=== PATIENT | female | born 1995 | race American Indian/Alaskan Native ===

== ENCOUNTER 2016-10-21 02:07 | Emergency (ER) | payer MEDICAID ==
[2016-10-21 03:43] LABS: Bacteria,Urine 1+ /HPF (Negative); Bilirubin,Urine NEG (Negative); Blood,Urine NEG (Negative); Ketones,Urine NEG (Negative); Leukocyte Esterase,Urine SM (Negative); Mucus,Urine FEW /HPF; Nitrite,Urine POS (Negative); Protein,Urine <15 mg/dL mg/dL (Negative)
--- NOTE | 2016-10-21 03:49 | Emergency Department Report ---
ED General Adult HPI - General Chief complaint: Extremity Injury, Upper Stated complaint: RT HAND INJURY/URINE ODOR Time Seen by Provider: 10/21/16 03:48 Source: patient, RN notes reviewed Mode of arrival: Ambulatory Limitations: No Limitations - History of Present Illness Initial comments: This is a 21-year-old female. She is previously unknown to me. She is right- hand dominant. She presents to the ER with right dorsal hand pain after accidentally hitting her hand into a door. There is no crush injury. There are no other injuries. The pain is achy, increases with palpation, range of motion, decreases with rest. No other injuries. Patient also complains of vaginal discharge for 1 month. She denies irritative and obstructive urinary symptoms. She denies pelvic pain. The patient denies fevers and chills. Patient reports multiple sexual partners, does not use condoms. Location: right (hand) Radiation: non-radiation Quality: aching Consistency: intermittent Improves with: rest Worsens with: movement Associated Symptoms: denies: confusion, chest pain, cough, diaphoresis, fever/ chills, headaches, loss of appetite, malaise, nausea/vomiting, shortness of breath, syncope, weakness - Related Data Home Medications Medication Instructions Recorded Confirmed Last Taken No Known Home Medications [No 07/06/15 07/06/15 Unknown Reported Home Medications] Allergies Allergy/AdvReac Type Severity Reaction Status Date / Time No Known Allergies Allergy Unverified 07/06/15 20:10 ED Review of Systems ROS: Stated complaint: RT HAND INJURY/URINE ODOR Other details as noted in HPI Constitutional: denies: fever, malaise Eyes: denies: vision change ENT: denies: epistaxis Respiratory: denies: cough Cardiovascular: denies: chest pain Genitourinary: discharge Musculoskeletal: arthralgia, myalgia. denies: back pain Skin: denies: lesions Neurological: denies: weakness ED Past Medical Hx - Past Medical History Previous Medical History?: No - Social History Smoking Status: Current Every Day Smoker Substance Use Type: Alcohol - Medications Home Medications: Home Medications Medication Instructions Recorded Confirmed Last Taken Type No Known Home Medications [No 07/06/15 07/06/15 Unknown History Reported Home Medications] ED Physical Exam - General Limitations: No Limitations General appearance: alert, in no apparent distress - Head Head exam: Present: atraumatic, normocephalic - Eye Eye exam: Present: normal appearance, EOMI. Absent: nystagmus - ENT ENT exam: Present: normal exam, normal orophraynx, mucous membranes moist, normal external ear exam - Neck Neck exam: Present: normal inspection, full ROM. Absent: tenderness, meningismus - Respiratory Respiratory exam: Present: normal lung sounds bilaterally. Absent: respiratory distress, wheezes, rales, rhonchi, stridor, chest wall tenderness - Cardiovascular Cardiovascular Exam: Present: regular rate, normal rhythm, normal heart sounds. Absent: systolic murmur, diastolic murmur, rubs, gallop - GI/Abdominal GI/Abdominal exam: Present: soft, normal bowel sounds. Absent: distended, tenderness, guarding, rebound, rigid, pulsatile mass - External exam: Present: normal external exam Speculum exam: Present: normal speculum exam. Absent: vaginal bleeding, foreign body Bi-manual exam: Present: normal bi-manual exam, other (escorted by ED photographs curator Gaetano Fischer). Absent: cervical motion tendernes, adnexal tenderness, adnexal mass - Extremities Exam Extremities exam: Present: normal inspection, full ROM, tenderness, normal capillary refill, other (there is tenderness to the dorsal aspect of the right hand. There is no snuffbox tenderness. Thumb opposition lumbricals intact. Sensation intact to light touch in the deltoid, median, radial, ulnar distribution. Compartments are soft. 2+ pulses in b/l upper extremities.). Absent: calf tenderness - Back Exam Back exam: Present: normal inspection, full ROM. Absent: tenderness, CVA tenderness (R), CVA tenderness (L), muscle spasm, paraspinal tenderness, vertebral tenderness - Neurological Exam Neurological exam: Present: alert, oriented X3, normal gait, other (Extraocular movements intact. Tongue midline. No facial droop. Facial sensation intact to light touch in the V1, V2, V3 distribution bilaterally. 5 and 5 strength in 4 extremities.. Sensation is intact to light touch in 4 extremities.). Absent : motor sensory deficit - Psychiatric Psychiatric exam: Present: normal affect, normal mood - Skin Skin exam: Present: warm, dry, intact, normal color. Absent: rash ED Course Vital Signs 10/21/16 02:25 Temperature 98.0 F Pulse Rate 81 Respiratory 16 Rate Blood Pressure 137/93 O2 Sat by Pulse 100 Oximetry ED Medical Decision Making - Lab Data Vital Signs 10/21/16 02:25 Temperature 98.0 F Pulse Rate 81 Respiratory 16 Rate Blood Pressure 137/93 O2 Sat by Pulse 100 Oximetry Vital Signs 10/21/16 02:25 Temperature 98.0 F Pulse Rate 81 Respiratory 16 Rate Blood Pressure 137/93 O2 Sat by Pulse 100 Oximetry Laboratory Last Values Urine Color Yellow (Yellow) 10/21/16 02:41 Urine Turbidity Clear (Clear) 10/21/16 02:41 Urine pH 6.0 (5.0-7.0) 10/21/16 02:41 Ur Specific Thomson 1.015 (1.003-1.030) 10/21/16 02:41 Urine Protein <15 mg/dl mg/dL (Negative) 10/21/16 02:41 Urine Glucose (UA) Neg mg/dL (Negative) 10/21/16 02:41 Urine Ketones Neg mg/dL (Negative) 10/21/16 02:41 Urine Blood Neg (Negative) 10/21/16 02:41 Urine Nitrite Pos (Negative) 10/21/16 02:41 Ur Reducing Substances Not Reportable 10/21/16 02:41 Urine Bilirubin Neg (Negative) 10/21/16 02:41 Urine Ictotest Not Reportable 10/21/16 02:41 Urine Urobilinogen 2.0 mg/dL (<2.0) 10/21/16 02:41 Ur Leukocyte Esterase Sm (Negative) 10/21/16 02:41 Urine WBC (Auto) 7.0 /HPF (0.0-6.0) H 10/21/16 02:41 Urine RBC (Auto) 3.0 /HPF (0.0-6.0) 10/21/16 02:41 U Epithel Cells (Auto) 1.0 /HPF (0-13.0) 10/21/16 02:41 Urine Bacteria (Auto) 1+ /HPF (Negative) 10/21/16 02:41 Urine Mucus Few /HPF 10/21/16 02:41 Urine HCG, Qual Negative (Negative) 10/21/16 02:41 - Radiology Data Radiology results: report reviewed, image reviewed X-ray of the hand demonstrates no fracture or dislocation. - Medical Decision Making Differential diagnosis: Hand contusion, hand fracture, hand dislocation, nonspecific vaginitis Assessment and plan: 21-year-old female with right-sided hand injury without fracture or dislocation. Medical history, this injury pattern would be very unlikely to cause a snuffbox or scaphoid injury. There is no fall on outstretched hand. There is no cervical motion tenderness or adnexal tenderness. The patient denies irritative or obstructive urinary symptoms. Therefore pelvic inflammatory disease and UTI very unlikely. She is given pain medication, placed in a right wrist splint. She is instructed to follow up with outpatient primary care or orthopedics. Return precautions are reviewed. Critical care attestation.: If time is entered above; I have spent that time in minutes in the direct care of this critically ill patient, excluding procedure time. ED Disposition Clinical Impression: Right hand pain, Vaginal discharge Disposition: TO HOME OR SELFCARE Is pt being admited?: No Does the pt Need Aspirin: No Condition: Stable Instructions: Contusion in Adults (ED), Vaginitis (ED) Additional Instructions: Rest and avoid heavy lifting. Avoid strenuous physical activity. Cultures was sent today, results be available in the next 3-5 days. Have a primary care doctor contact medical records department to obtain culture results. Keep the splint in place on the right upper extremity. Follow up with either primary care or orthopedics for reevaluation to have the splint taken off. Make certain to practice safe sex. Make certain that any partner that you are intimate with wears a condom. Not practicing safe sex puts the patient at risk for STDs, such as syphilis, hepatitis, HIV. Return to the ER right away with new pain, worsened pain, migration of pain, fevers, chills, confusion, weakness, numbness, intractable nausea or vomiting, inability to tolerate liquid feeds. Referrals: PRIMARY MD NORA [Primary Care Provider] - 3-5 Days MORENITA AVENDAÑO MD [Staff Physician] - 3-5 Days MITCHELL LANDIS MD [Staff Physician] - 3-5 Days [facility] [Provider Group] - 3-5 Days
--- NOTE | 2016-10-21 04:08 | XRay Report ---
FINAL REPORT EXAM: XR HAND 2V RT HISTORY: RIGHT HAND PAIN AND LIMITED MOBILITY/EXTENSION. STATUS POST INJURY. TECHNIQUE: Three radiographs of the right hand were obtained. No prior studies are available for comparison. FINDINGS: There is no fracture or dislocation. There is mild flexion of the 2nd through 5th digits. No other discrete osseous abnormality is seen. No significant soft tissue abnormality is identified. IMPRESSION: Nonspecific mild flexion of the 2nd through 5th digits. No fracture, dislocation, or other osseous abnormality.
[2016-10-21] MEDS ORDERED: MOTRIN PO ONE (04:32)
[2016-10-21 05:15] VITALS: BP 122/74
== END 2016-10-21 05:14 | disposition home or self-care (01) ==
LOC: ED 02:07
DX: M79.641 Pain in right hand (principal); N89.8 Other specified noninflammatory disorders of vagina; F17.200 Nicotine dependence, unspecified, uncomplicated; W22.03XA Walked into furniture, initial encounter; Y93.89 Activity, other specified; Y99.8 Other external cause status; Y92.89 Other specified places as the place of occurrence of the external cause
CPT/HCPCS: 81001; 81025; 87210; 87591

== ENCOUNTER 2017-06-06 03:03 | Emergency (ER) | payer MEDICAID ==
[2017-06-06 04:28] LABS: Bilirubin,Urine NEG (Negative); Blood,Urine NEG (Negative); Color,Urine Yellow (Yellow); Protein,Urine <15 mg/dL mg/dL (Negative); Urobilinogen,Urine < 2.0 mg/dL (<2.0)
[2017-06-06 04:35] LABS: Basophils % (Auto) 0.4 % (0.0-1.8); Eosinophils # (Auto) 0.1 K/mm3 (0.0-0.4); Eosinophils % (Auto) 1.1 % (0.0-4.3); Hemoglobin 11.2 gm/dl (10.1-14.3); Lymphocytes # (Auto) 1.7 K/mm3 (1.2-5.4); Lymphocytes % (Auto) 26.3 % (13.4-35.0); Mean Corpuscular HGB Conc 33 % (30-34); Mean Corpuscular Hemoglobin 26 pg (28-32); Mean Corpuscular Volume 79 fl (79-97); Monocytes # (Auto) 0.6 K/mm3 (0.0-0.8); Monocytes % (Auto) 9.8 % (0.0-7.3); Platelet Count 264 K/mm3 (140-440); Red Blood Count 4.29 M/mm3 (3.65-5.03); Red Cell Distribution Width 17.2 % (13.2-15.2)
[2017-06-06 04:41] LABS: Alanine Aminotransferase 11 units/L (7-56); Albumin 4.1 g/dL (3.9-5); BUN/Creatinine Ratio 9; Blood Urea Nitrogen 6 mg/dL (7-17); Calcium 9.1 mg/dL (8.4-10.2); Hemolysis Index 1; Lipase 17 units/L (13-60)
--- NOTE | 2017-06-06 09:24 | Emergency Department Report ---
ED Abdominal Pain HPI - General Chief Complaint: Abdominal Pain Stated Complaint: ABD PAIN; Time Seen by Provider: 06/06/17 08:49 Source: patient Mode of arrival: Ambulatory Limitations: No Limitations - History of Present Illness Initial Comments: Patient is 22 years old female With lower abdominal pain mellitus suprapubic for the last few days. Patient stated that her last menstrual period was in the beginning of April. She denied any nausea or vomiting. No urinary symptoms. No vaginal bleeding or vaginal discharge. No fever. MD Complaint: abdominal pain Location: suprapubic Radiation: none Migration to: no migration Severity scale (0 -10): 3 Consistency: intermittent Associated Symptoms: denies other symptoms - Related Data Previous Rx's Medication Instructions Recorded Last Taken Type Ibuprofen [Motrin] 600 mg PO Q8H PRN #30 tablet 10/21/16 Unknown Rx metroNIDAZOLE [Metronidazole] 70 gm VG QHS #5 gel.w.appl 10/21/16 Unknown Rx Allergies Allergy/AdvReac Type Severity Reaction Status Date / Time No Known Allergies Allergy Unverified 07/06/15 20:10 ED Review of Systems ROS: Stated complaint: ABD PAIN; Other details as noted in HPI Comment: All other systems reviewed and negative Constitutional: denies: chills, fever Respiratory: denies: cough, orthopnea, shortness of breath, SOB with exertion Gastrointestinal: abdominal pain. denies: nausea, vomiting, diarrhea, constipation, hematemesis Genitourinary: denies: urgency, frequency Neurological: denies: headache, weakness ED Past Medical Hx - Past Medical History Previous Medical History?: No - Surgical History Additional Surgical History: Abortions - Social History Smoking Status: Never Smoker Substance Use Type: Marijuana - Medications Home Medications: Home Medications Medication Instructions Recorded Confirmed Last Taken Type Ibuprofen [Motrin] 600 mg PO Q8H PRN #30 tablet 10/21/16 Unknown Rx metroNIDAZOLE [Metronidazole] 70 gm VG QHS #5 gel.w.appl 10/21/16 Unknown Rx ED Physical Exam - General Limitations: No Limitations General appearance: alert, in no apparent distress - Head Head exam: Present: atraumatic, normocephalic - Eye Eye exam: Present: normal appearance, PERRL - ENT ENT exam: Present: normal exam, normal orophraynx, mucous membranes moist - Neck Neck exam: Present: normal inspection. Absent: tenderness, meningismus - Respiratory Respiratory exam: Present: normal lung sounds bilaterally - Cardiovascular Cardiovascular Exam: Present: regular rate, normal rhythm, normal heart sounds - GI/Abdominal GI/Abdominal exam: Present: soft, normal bowel sounds. Absent: distended, tenderness, guarding, rebound, rigid, organomegaly, mass, bruit, pulsatile mass - Extremities Exam Extremities exam: Present: normal inspection, full ROM, normal capillary refill - Back Exam Back exam: Present: normal inspection, full ROM. Absent: CVA tenderness (R), CVA tenderness (L) - Neurological Exam Neurological exam: Present: alert, oriented X3, CN II-XII intact, normal gait - Skin Skin exam: Present: warm, intact, normal color ED Course Vital Signs 06/06/17 06/06/17 03:44 08:19 Temperature 98 F Pulse Rate 75 Respiratory 18 16 Rate Blood Pressure 132/90 O2 Sat by Pulse 100 Oximetry - Reevaluation(s) Reevaluation #1: 06/06/17 13:14 Patient stated that she is feeling better, she stated that she made an appointment with her OB for June 15. ED Medical Decision Making - Lab Data Result diagrams: 06/06/17 03:52 06/06/17 03:52 - Radiology Data Radiology results: report reviewed Referring Physician: DANYA HUTCHISON Patient Name: LUCINDA BRUNO Date of : 1995 Sex: Female Report Date: 2017-06-06 Report Status: Finalized Findings [facility] [address] [place] [address] Ultrasound Report Signed Patient: LUCINDA BRUNO MR#: [id number] : 1995 Acct:[id number] Age/Sex: 22 / F ADM Date: 06/06/17 Loc: ED Attending Dr: Ordering Physician: DANYA HUTCHISON Date of Service: 06/06/17 Procedure(s): US OB transvaginal Accession Number(s): [id number] cc: DANYA HUTCHISON ULTRASOUND OB LESS THAN 14 WEEKS FETUS ULTRASOUND OB TRANSVAGINAL HISTORY: Abdominal pain during , beta-hCG level of 2777. COMPARISON: None. TECHNIQUE: Transabdominal and transvaginal ultrasound with color doppler interrogation. FINDINGS: Uterus: 10 x 6 x 6 cm. No uterine mass. The cervix is unremarkable. Endometrium: The endometrium measures 18 mm in thickness on transvaginal imaging. There appears to be a tiny cyst or gestational sac within the endometrium with average diameter measuring 7.1 mm which correlates with a 5 week, 3 day . There may be a tiny yolk sac. No convincing pole with cardiac activity. Right ovary: 1.8 x 2.7 x 2.8 cm. No focal abnormality. Left ovary: 2.4 x 3.6 x 3.5 cm. A 2.1 cm corpus luteum cyst is suspected in the left ovary. No pelvic fluid or mass is identified. Normal color doppler interrogation. IMPRESSION: There appears to be a tiny cyst or gestational sac within the endometrial canal as described. No convincing pole or cardiac activity is identified at this time. This may represent a normal very early . Close interval followup is recommended. Transcribed By: TTR Dictated By: ALISTAIR PALOMINO JR, MD Electronically Authenticated By: ALISTAIR PALOMINO JR, MD Signed Date/Time: 06/06/171224 DD/ 21 TD/TT: 06/06/17 1225 Critical care attestation.: If time is entered above; I have spent that time in minutes in the direct care of this critically ill patient, excluding procedure time. ED Disposition Clinical Impression: Abdominal pain affecting Disposition: DC-01 TO HOME OR SELFCARE Is pt being admited?: No Condition: Stable Instructions: Abdominal Pain in (ED) Referrals: PRIMARY CAREMD [Primary Care Provider] - 3-5 Days
--- NOTE | 2017-06-06 12:33 | Ultrasound Report ---
ULTRASOUND OB LESS THAN 14 WEEKS FETUS ULTRASOUND OB TRANSVAGINAL HISTORY: Abdominal pain during , beta-hCG level of 2777. COMPARISON: None. TECHNIQUE: Transabdominal and transvaginal ultrasound with color doppler interrogation. FINDINGS: Uterus: 10 x 6 x 6 cm. No uterine mass. The cervix is unremarkable. Endometrium: The endometrium measures 18 mm in thickness on transvaginal imaging. There appears to be a tiny cyst or gestational sac within the endometrium with average diameter measuring 7.1 mm which correlates with a 5 week, 3 day . There may be a tiny yolk sac. No convincing pole with cardiac activity. Right ovary: 1.8 x 2.7 x 2.8 cm. No focal abnormality. Left ovary: 2.4 x 3.6 x 3.5 cm. A 2.1 cm corpus luteum cyst is suspected in the left ovary. No pelvic fluid or mass is identified. Normal color doppler interrogation. IMPRESSION: There appears to be a tiny cyst or gestational sac within the endometrial canal as described. No convincing pole or cardiac activity is identified at this time. This may represent a normal very early . Close interval followup is recommended.
[2017-06-06 13:29] VITALS: BP 126/75
== END 2017-06-06 13:29 | disposition home or self-care (01) ==
LOC: ED 03:03
DX: O26.891 Other specified pregnancy related conditions, first trimester (principal); R10.30 Lower abdominal pain, unspecified; Z3A.01 Less than 8 weeks gestation of pregnancy
CPT/HCPCS: 36415; 76801; 76817; 80053; 81001; 83690; 84702; 84703; 85025; 99284

== ENCOUNTER 2017-06-25 06:14 | Emergency (ER) | payer MEDICAID ==
[2017-06-25] MEDS ORDERED: TYLENOL ONE (06:19)
[2017-06-25 06:26] VITALS: BP 117/68
[2017-06-25] MEDS ORDERED: TYLENOL PO ONE (06:29)
[2017-06-25 07:04] LABS: Basophils % (Auto) 0.4 % (0.0-1.8); Eosinophils # (Auto) 0.1 K/mm3 (0.0-0.4); Eosinophils % (Auto) 0.8 % (0.0-4.3); Hematocrit 33.4 % (30.3-42.9); Hemoglobin 11.1 gm/dl (10.1-14.3); Lymphocytes # (Auto) 1.4 K/mm3 (1.2-5.4); Lymphocytes % (Auto) 19.4 % (13.4-35.0); Mean Corpuscular HGB Conc 33 % (30-34); Mean Corpuscular Hemoglobin 27 pg (28-32); Mean Corpuscular Volume 80 fl (79-97); Monocytes # (Auto) 0.7 K/mm3 (0.0-0.8); Monocytes % (Auto) 9.9 % (0.0-7.3); Platelet Count 235 K/mm3 (140-440); Red Blood Count 4.15 M/mm3 (3.65-5.03); Red Cell Distribution Width 16.9 % (13.2-15.2)
[2017-06-25 07:17] LABS: BUN/Creatinine Ratio 7; Blood Urea Nitrogen 4 mg/dL (7-17); Calcium 8.7 mg/dL (8.4-10.2); Hemolysis Index 3
[2017-06-25 07:49] LABS: Bacteria,Urine 1+ /HPF (Negative); Bilirubin,Urine NEG (Negative); Blood,Urine NEG (Negative); Color,Urine Yellow (Yellow); Mucus,Urine FEW /HPF; Protein,Urine <15 mg/dL mg/dL (Negative); Urobilinogen,Urine < 2.0 mg/dL (<2.0)
--- NOTE | 2017-06-25 07:55 | Ultrasound Report ---
FINAL REPORT EXAM: US OB < = 14 WEEKS FETUS HISTORY: abdominal pain COMPARISONS: None. FINDINGS: Transabdominal grayscale, color Doppler and M-mode first-trimester ultrasound There is a single living intrauterine with recorded cardiac activity of 155 beats per minute and crown-rump length of 15 millimeters corresponding to estimated gestational age of 7 weeks 6 days and delivery date of 02/05/2018. A normal appearing yolk sac measures approximately 3 millimeters in caliber. Perigestational hemorrhage involves less than 25 percent of the gestational sac surface area and measures 2.5 x 0.7 x 0.5 cm. No significant free fluid in the pelvis. The right ovary measures 3.5 x 1.3 x 2.9 cm and the left ovary measures 4.1 x 2.1 x 2.6 cm. Ovaries demonstrate normal echotexture and color Doppler evaluation. Left ovarian 2.3 centimeter corpus luteal cyst is noted. IMPRESSION: Single living intrauterine with estimated gestational age of 7 weeks 6 days corresponding to delivery date of 02/05/2018.
[2017-06-25] MEDS ORDERED: NACL 0.9% 1000 ML 1,000 ML ONE (08:00)
[2017-06-25] MEDS ORDERED: NACL 0.9% 1000 ML 1,000 ML IV ONE (08:09)
--- NOTE | 2017-06-25 08:26 | Emergency Department Report ---
ED HPI - General Chief complaint: Abdominal Pain Stated complaint: STOMACH PAIN Time Seen by Provider: 06/25/17 08:07 Source: patient Mode of arrival: Ambulatory Limitations: No Limitations - History of Present Illness Initial comments: This is a 22-year-old female A4 nontoxic, well nourished in appearance, no acute signs of distress presents to the ED with c/o of abdominal cramping 1 day. Patient stated she woke up this morning with these symptoms. Patient states she is currently 8 weeks with no [facility] follow-up. Patient describes abdominal cramping mostly in the pelvic region. Patient denies any vaginal bleeding, vaginal discharge, fever, chills, nausea, vomiting, headache, stiff neck, back pain. Patient denies any urinary symptoms. Patient denies any allergies or significant past medical history. Patient denies any calf pain or calf tenderness. Denies any recent travels, long car rides, or recent hospital stays. The patient states that symptoms has currently resolved after receiving Tylenol in the ED. MD Complaint: abdominal pain -: Last night Location: pelvis Radiation: none Severity: mild Severity scale (0 -10): 3 Quality: cramping Consistency: intermittent, now resolved Improves with: none Worsens with: none Associated symptoms: denies other symptoms, abdominal pain. denies: nausea/ vomiting, vaginal bleeding, vaginal discharge, dysuria, headache, vision changes , malaise, dysparuenia, rash, seizure, shortness of breath, syncope, weakness - Related Data Previous Rx's Medication Instructions Recorded Last Taken Type Ibuprofen [Motrin] 600 mg PO Q8H PRN #30 tablet 10/21/16 Unknown Rx metroNIDAZOLE [Metronidazole] 70 gm VG QHS #5 gel.w.appl 10/21/16 Unknown Rx Acetaminophen 500 mg PO Q8H PRN #30 tablet 06/25/17 Unknown Rx Metoclopramide [Reglan] 10 mg PO TID PRN #20 tab 06/25/17 Unknown Rx Allergies Allergy/AdvReac Type Severity Reaction Status Date / Time No Known Allergies Allergy Verified 06/25/17 06:23 ED Review of Systems ROS: Stated complaint: STOMACH PAIN Other details as noted in HPI Constitutional: denies: chills, fever Eyes: denies: eye pain, eye discharge, vision change ENT: denies: ear pain, throat pain Respiratory: denies: cough, shortness of breath, wheezing Cardiovascular: denies: chest pain, palpitations Endocrine: no symptoms reported Gastrointestinal: abdominal pain. denies: nausea, diarrhea Genitourinary: denies: urgency, dysuria, discharge Musculoskeletal: denies: back pain, joint swelling, arthralgia Skin: denies: rash, lesions Neurological: denies: headache, weakness, paresthesias Psychiatric: denies: anxiety, depression Hematological/Lymphatic: denies: easy bleeding, easy bruising ED Past Medical Hx - Past Medical History Previous Medical History?: No Hx Hypertension: Yes (gestational) - Surgical History Additional Surgical History: Abortions - Social History Smoking Status: Never Smoker Substance Use Type: None - Medications Home Medications: Home Medications Medication Instructions Recorded Confirmed Last Taken Type Ibuprofen [Motrin] 600 mg PO Q8H PRN #30 tablet 10/21/16 Unknown Rx metroNIDAZOLE [Metronidazole] 70 gm VG QHS #5 gel.w.appl 10/21/16 Unknown Rx Acetaminophen 500 mg PO Q8H PRN #30 tablet 06/25/17 Unknown Rx Metoclopramide [Reglan] 10 mg PO TID PRN #20 tab 06/25/17 Unknown Rx ED Physical Exam - General Limitations: No Limitations General appearance: alert, in no apparent distress - Head Head exam: Present: atraumatic, normocephalic - Eye Eye exam: Present: normal appearance Pupils: Present: normal accommodation - ENT ENT exam: Present: normal exam, mucous membranes moist - Neck Neck exam: Present: normal inspection, full ROM. Absent: tenderness - Respiratory Respiratory exam: Present: normal lung sounds bilaterally. Absent: respiratory distress, wheezes, rales, rhonchi, stridor, chest wall tenderness, accessory muscle use, decreased breath sounds, prolonged expiratory - Cardiovascular Cardiovascular Exam: Present: regular rate, normal rhythm, normal heart sounds. Absent: bradycardia, tachycardia, irregular rhythm, systolic murmur, diastolic murmur, rubs, gallop - GI/Abdominal GI/Abdominal exam: Present: soft, normal bowel sounds. Absent: distended, tenderness, guarding, rebound, rigid, diminished bowel sounds - Expanded GI/Abdominal Exam Expanded GI/Abdominal exam: Absent: psoas sign, obturator sign, heel tap sign, Rand's sign, Rovsing's sign, tenderness at Mcburney's Point, ascites - Rectal Rectal exam: Present: deferred - Extremities Exam Extremities exam: Present: normal inspection, full ROM, normal capillary refill - Back Exam Back exam: Present: normal inspection, full ROM - Neurological Exam Neurological exam: Present: alert, oriented X3, normal gait - Psychiatric Psychiatric exam: Present: normal affect, normal mood - Skin Skin exam: Present: warm, dry, intact, normal color. Absent: rash ED Course Vital Signs 06/25/17 06/25/17 06:22 08:11 Temperature 98.6 F Pulse Rate 73 Respiratory 16 12 Rate Blood Pressure 117/68 O2 Sat by Pulse 99 Oximetry - Reevaluation(s) Reevaluation #1: 06/25/17 08:24 Patient is speaking in full sentences with no signs of distress noted. ED Medical Decision Making - Lab Data Result diagrams: 06/25/17 06:37 06/25/17 06:37 - Medical Decision Making This is a 22-year-old female that presents with abdominal cramping. Patient is stable and was examined by me. There is no vaginal bleeding or vaginal discharge. UA indicates like UTIs I will treat patient with Macrobid at discharge. Labs obtained within normal limits and slightly dehydration as the patient received 1 L of normal saline. Patient is discharged with Tylenol. Ultrasound obtained and dictated by the radiologist with single IUP with estimated gestational age of 7 weeks 6 days and heartbeat of 155. Patient was notified of the the report questions noted by the the patient. Patient was referred and instructed to follow up with [facility] or her symptoms worsen to return to emergency room as was possible. At time of discharge, the patient does not seem toxic or ill in appearance. No acute signs of distress noted. Patient agrees to discharge treatment plan of care. No further questions noted by the patient. This chart is dictated with using [employer] Critical care attestation.: If time is entered above; I have spent that time in minutes in the direct care of this critically ill patient, excluding procedure time. ED Disposition Clinical Impression: Abdominal cramping Qualifiers: Weeks of gestation: less than 8 weeks Qualified Code(s): Z3A.01 - Less than 8 weeks gestation of Disposition: -01 TO HOME OR SELFCARE Is pt being admited?: No Does the pt Need Aspirin: No Condition: Stable Instructions: Abdominal Pain (ED), (ED), Acetaminophen (By mouth) Additional Instructions: Follow-up with a [facility] in 3-5 days or if symptoms worsen and continue return to emergency room as soon as possible. Prescriptions: Acetaminophen 500 mg PO Q8H PRN #30 tablet PRN Reason: Pain Metoclopramide [Reglan] 10 mg PO TID PRN #20 tab PRN Reason: Nausea Referrals: [facility] [Primary Care Provider] - 3-5 Days KEITH LANGE MD [Staff Physician] - 3-5 Days [facility] [Provider Group] - 3-5 Days [facility] [Outside] - 3-5 Days Forms: Work/School Release Form(ED)
== END 2017-06-25 10:02 | disposition home or self-care (01) ==
LOC: ED 06:14
DX: O26.891 Other specified pregnancy related conditions, first trimester (principal); R10.30 Lower abdominal pain, unspecified; Z3A.01 Less than 8 weeks gestation of pregnancy
CPT/HCPCS: 36415; 76801; 76817; 80048; 81001; 84702; 85025; 96360; 99284; J7030

== ENCOUNTER 2017-09-10 00:05 | Emergency (ER) | payer MEDICAID ==
[2017-09-10 00:53] VITALS: BP 121/65
[2017-09-11] MEDS ORDERED: ZOFRAN ONE (13:42)
== END 2017-09-10 00:40 | disposition left against medical advice (07) ==
LOC: ED 00:05
DX: R51 Headache (principal); Z53.21 Procedure and treatment not carried out due to patient leaving prior to being seen by health care provider
CPT/HCPCS: J2405

== ENCOUNTER 2017-10-17 02:13 | Outpatient (CLI) | payer MEDICAID ==
[2017-10-17 02:36] VITALS: BP 118/68
[2017-10-17] MEDS ORDERED: LACTATED RINGERS 1,000 ML ONE (02:46)
[2017-10-17] MEDS ORDERED: LACTATED RINGERS 1,000 ML IV ONE (02:47)
[2017-10-17 03:22] LABS: Bilirubin,Urine NEG (Negative); Blood,Urine NEG (Negative); Color,Urine Yellow (Yellow); Hyaline Casts,Urine 1 /LPF; Mucus,Urine FEW /HPF; Urobilinogen,Urine < 2.0 mg/dL (<2.0)
== END 2017-10-17 04:08 | disposition home or self-care (01) ==
LOC: TRG 02:13
PROVIDERS: ATTEND Obstetrics & Gynecology
DX: O26.892 Other specified pregnancy related conditions, second trimester (principal); Z3A.24 24 weeks gestation of pregnancy
CPT/HCPCS: 81001; 96360; J7120

== ENCOUNTER 2017-11-23 13:03 | Outpatient (CLI) | payer MEDICAID ==
[2017-11-23] MEDS ORDERED: PROCTOFOAM-HC PR PRN (14:00)
== END 2017-11-23 14:03 | disposition home or self-care (01) ==
LOC: TRG 13:03
PROVIDERS: ATTEND Obstetrics & Gynecology
DX: O47.03 False labor before 37 completed weeks of gestation, third trimester (principal); O13.3 Gestational [pregnancy-induced] hypertension without significant proteinuria, third trimester; Z3A.30 30 weeks gestation of pregnancy
CPT/HCPCS: 59025

== ENCOUNTER 2020-02-26 04:17 | Emergency (ER) | payer SELFPAY ==
[2020-02-26 04:25] VITALS: BP 138/84
== END 2020-02-26 08:00 | disposition left against medical advice (07) ==
LOC: ED 04:17
DX: R10.2 Pelvic and perineal pain (principal); Z53.21 Procedure and treatment not carried out due to patient leaving prior to being seen by health care provider

== ENCOUNTER 2020-03-31 16:06 | Emergency (ER) | payer SELFPAY ==
[2020-03-31 18:01] VITALS: BP 119/83
--- NOTE | 2020-03-31 18:08 | Emergency Department Report ---
Chief Complaint: Urogenital-Female Stated Complaint: VAGINAL PAIN/DISCHARGE Time Seen by Provider: 03/31/20 18:04 - HPI History of Present Illness: 24-year-old -[place] female presents to the emergency room for vaginal discharge with an odor and has vaginal pain with intercourse. Patient denies any vaginal bleeding denies any pelvic pain unless she has intercourse. Last menstrual period was 03/19/2020. Patient reports she is allergic to latex. Vital signs are 119/83 with a heart rate of 7800% oxygen. - Exam Vital Signs: Vital Signs 03/31/20 17:58 Temperature 97.8 F Pulse Rate 81 Respiratory 16 Rate Blood Pressure 119/83 [Right] O2 Sat by Pulse 100 Oximetry Physical Exam: Patient is alert and oriented x3 no acute distress nontoxic in appearance Patient is ambulatory without difficulties. No abdominal or pelvic tenderness MSE screening note: Focused history and physical exam performed. Due to findings the following was ordered: 24-year-old -[place] female presents to the emergency room for vaginal discharge with an odor and has vaginal pain with intercourse. Patient denies any vaginal bleeding denies any pelvic pain unless she has intercourse. Last menstrual period was 03/19/2020. Patient reports she is allergic to latex. Vital signs are 119/83 with a heart rate of 7800% oxygen. Discussed with patient she can follow-up with outpatient [facility] urgent care or primary care clinic. Patient's has stable vital signs no acute distress. ED Disposition for [facility] [place] Disposition: MED SCREENING EXAM-LEFT Is pt being admited?: No Does the pt Need Aspirin: No Condition: Stable Additional Instructions: Follow-up with outpatient [facility], primary care or urgent care. All vitals are stable Referrals: [facility] [Provider Group] - 3-5 Days [facility] [Provider Group] - 3-5 Days [facility] [Provider Group] - 3-5 Days
== END 2020-03-31 20:47 | disposition left against medical advice (07) ==
LOC: ED 16:06
DX: N89.8 Other specified noninflammatory disorders of vagina (principal); Z53.21 Procedure and treatment not carried out due to patient leaving prior to being seen by health care provider